=== PATIENT | male | born 1990 | race Caucasian/White ===

== ENCOUNTER 2022-10-14 23:18 | Emergency (ER) | payer SELFPAY | END 2022-10-14 23:57 | LOC: JD.ED 23:18 | DX: S93.401A Sprain of unspecified ligament of right ankle, initial encounter (principal); F17.210 Nicotine dependence, cigarettes, uncomplicated; W03.XXXA Other fall on same level due to collision with another person, initial encounter | CPT/HCPCS: 73610-26-RT; 73610-RT; 99282; 99283 ==